=== PATIENT | male | born 1955 ===

== ENCOUNTER 2025-07-07 15:00 | Day surgery (SDC) | payer MEDICARE ==
[~2025-07-07] VITALS: Ht 180.3 cm; Wt 139.5 kg
[~2025-07-07 15:00] MED LIST: Propofol 10mg/ml 20 ml Vial (Procedural) IV ONE
[2025-07-07] MEDS ORDERED: ALBU90OI INH (15:29)
[2025-07-07] MEDS ORDERED: AMLO5 PO (15:29)
[2025-07-07] MEDS ORDERED: FURO40 PO (15:31)
[2025-07-07] MEDS ORDERED: LOSA25 PO (15:31)
[2025-07-07] MEDS ORDERED: ATOR40TA PO (15:32)
[2025-07-07] MEDS ORDERED: METO25ER PO (15:32)
[2025-07-07 15:47] VITALS: BP 184/88
[2025-07-07 15:50] VITALS: BP 164/88
[2025-07-07] MEDS ORDERED: Ipratropium/Albuterol SulF 2.5-0.5MG/3 ML Amp INH ONE (16:30)
--- NOTE | 2025-07-07 17:39 | NUR ---
07/07/25 [id number] Esther Lang CONFIRMED AND REVIEWED H&P, MEDCICATIONS, ALLERGIES, MEDICAL HISTORY, RESPIRATORY HISTORY, VITAL SIGNS, 3-LEAD EKG, CONSENTS, AND PHYSICIAN ORDERS. PATIENT CONFIRMS NPO STATUS AND AGREES WITH SCHEDULED PROCEDURE. MONITOR INTACT WITH CONTINUOUS PULSE OXIMETRY, CAPNOGRAPHY, 3-LEAD EKG, INTERMITTENT BP. SUPPLEMENTAL O2 TO BE TITRATED THROUGHOUT PROCEDURE TO MAINTAIN O2 SATURATION ABOVE 90%. PATIENT DETERMINED TO BE ASA APPROPRIATE FOR MAC PRIOR TO START OF PROCEDURE BY . DR. CHAMORRO PROVIDING MAC-SEE ANESTHESIA RECORD.
[2025-07-07 18:02] VITALS: BP 131/73
--- NOTE | 2025-07-07 18:29 | NUR ---
Ambulatory in Day Surgery WITH STEADY GAIT. Discharge instructions reviewed with patient. Patient verbalizes understanding. Copy given to patient to take home. ALL BELONGINGS RETURNED TO PT. PT DENIED ANY NAUSEA OR VOMITING. GLASSES RETURNED TO PT IN RECOVERY. PT TAKEN TO [facility]IA [facility] FOR RIDE HOME.
== END 2025-07-07 23:00 | disposition home or self-care (01) ==
LOC: ORSCMMR 15:00 → ORD 15:00 → ORSCMMR 15:03 → ORD 15:03 → ORSCMMR 23:00
PROVIDERS: Family Medicine
PROC: 0DB68ZX Excision of Stomach, Via Natural or Artificial Opening Endoscopic, Diagnostic (ICD-10-PCS; principal; 2025-07-07 16:30)
DX: K92.1 Melena (principal); K29.70 Gastritis, unspecified, without bleeding; K44.9 Diaphragmatic hernia without obstruction or gangrene; E11.9 Type 2 diabetes mellitus without complications; E78.5 Hyperlipidemia, unspecified; E66.01 Morbid (severe) obesity due to excess calories; Z68.41 Body mass index [BMI] 40.0-44.9, adult; I48.91 Unspecified atrial fibrillation; I25.10 Atherosclerotic heart disease of native coronary artery without angina pectoris; G47.33 Obstructive sleep apnea (adult) (pediatric); I10 Essential (primary) hypertension; Z79.899 Other long term (current) drug therapy; Z87.891 Personal history of nicotine dependence
CPT/HCPCS: 82947; 88305; 88342; J2704; J7120